=== PATIENT | female | born 1970 | race Caucasian/White ===

== ENCOUNTER 2018-04-06 13:19 | Emergency (ER) | payer MEDICAID ==
[~2018-04-06] VITALS: Ht 167.6 cm; Wt 77.3 kg
[~2018-04-06 13:19] MED LIST: ARIP10TA15 PO; BACL10TA PO; GABA600T2 PO; HYDR-4383 PO; INSU100V36 SQ; VENL75TA90 PO
[2018-04-06 14:53] VITALS: BP 153/117
[2018-04-06 15:09] LABS: BASOPHILS % (AUTO) 0.5 % (0-1); EOSINOPHILS # (AUTO) 0.2 X10'3 (0-0.9); EOSINOPHILS % (AUTO) 2.5 % (0-6); HEMATOCRIT 39.6 % (35.0-45.0); LYMPHOCYTES # (AUTO) 2.9 X10'3 (1.1-4.8); LYMPHOCYTES % (AUTO) 34.2 % (21-51); MEAN CORPUSCULAR HEMOGLOBIN 28.8 PG (27.0-31.0); MEAN CORPUSCULAR HGB CONC 32.9 % (33.0-36.5); MEAN CORPUSCULAR VOLUME 87.8 FL (78-98); MEAN PLATELET VOLUME 9.3 FL (7.4-10.4); MONOCYTES # (AUTO) 0.5 X10'3 (0-0.9); MONOCYTES % (AUTO) 5.7 % (2-12); NEUTROPHILS # (AUTO) 4.9 X10'3 (1.8-7.7); NEUTROPHILS % (AUTO) 57.1 % (42-75); PLATELET COUNT 363 X10'3 (140-440); RED BLOOD COUNT 4.51 X10'6 (4.20-5.60); RED CELL DISTRIBUTION WIDTH 14.6 % (11.5-14.5); WHITE BLOOD COUNT 8.5 X10'3 (4.5-11.0)
[2018-04-06] MEDS ORDERED: MUPI22OI30 TP (15:26)
[2018-04-06] MEDS ORDERED: CLIN150C2 PO (15:26)
[2018-04-06 15:36] LABS: ALANINE AMINOTRANSFERASE 28 U/L (12-78); ALBUMIN 2.8 G/DL (3.4-5.0); ALBUMIN/GLOBULIN RATIO 0.6 (1.1-1.5); ALKALINE PHOSPHATASE 197 IU/L (46-116); ANION GAP 8 (8-16); ASPARTATE AMINO TRANSFERASE 17 U/L (10-37); BILIRUBIN,TOTAL 0.1 MG/DL (0.1-1.0); BLOOD UREA NITROGEN 8 MG/DL (7-18); BUN/CREATININE RATIO 10.3 (6.6-38.0); CALCIUM 8.7 MG/DL (8.5-10.1); CHLORIDE 99 MMOL/L (99-107); CREATININE 0.78 MG/DL (0.40-0.90); GLUCOSE 364 MG/DL (70-104); POTASSIUM 4.4 MMOL/L (3.5-5.1); SODIUM 136 MMOL/L (135-145); TOTAL CARBON DIOXIDE 29.5 MMOL/L (24-32); TOTAL PROTEIN 7.2 G/DL (6.4-8.2); eGFR 78 ML/MIN
== END 2018-04-06 15:50 | disposition home or self-care (01) ==
LOC: ER 13:20
DX: L01.00 Impetigo, unspecified (principal); B95.8 Unspecified staphylococcus as the cause of diseases classified elsewhere; I10 Essential (primary) hypertension; E11.9 Type 2 diabetes mellitus without complications; F41.9 Anxiety disorder, unspecified; Z90.49 Acquired absence of other specified parts of digestive tract; Z90.710 Acquired absence of both cervix and uterus; Z98.51 Tubal ligation status; Z79.899 Other long term (current) drug therapy; Z88.5 Allergy status to narcotic agent; Z88.6 Allergy status to analgesic agent
CPT/HCPCS: 36415; 80053; 82948; 85025; 99283

== ENCOUNTER 2018-05-01 13:23 | Inpatient (IN) | payer MEDICAID | END 2018-05-04 17:05 | disposition home or self-care (01) | LOC: ER 13:23 → ED HOLD 17:40 → SUR 3N 19:38 ==

== ENCOUNTER → 2018-06-19 | Emergency (ER) | payer MEDICAID ==
[~2018-06-19] VITALS: Ht 167.6 cm; Wt 71.0 kg
[~2018-06-19] MED LIST changes: +ALBU18HF2 IH; -BACL10TA PO; +FLUT1AER6 INH; +GABA100C PO; -GABA600T2 PO; +LACT1CAP26 PO; +NICO-687 TD
[2018-06-19 15:07] VITALS: BP 196/101
--- NOTE | 2018-06-19 15:18 | NUR ---
FELL THRU A DECK A WEEK AND 1/2 AGO HURTING LEFT ELBOW RADIATING DOWN TO HAND AND UP TO SHOULDER.
--- NOTE | 2018-06-19 15:23 | NUR ---
BACK FROM XRAY
== END | disposition home or self-care (01) ==
LOC: ER 15:04
DX: M25.522 Pain in left elbow (principal); R20.0 Anesthesia of skin; R20.2 Paresthesia of skin; M25.422 Effusion, left elbow; G89.29 Other chronic pain; Z88.6 Allergy status to analgesic agent; Z79.899 Other long term (current) drug therapy; Z79.4 Long term (current) use of insulin; I10 Essential (primary) hypertension; Z90.49 Acquired absence of other specified parts of digestive tract; Z90.710 Acquired absence of both cervix and uterus; E11.40 Type 2 diabetes mellitus with diabetic neuropathy, unspecified; Z98.51 Tubal ligation status; W18.39XA Other fall on same level, initial encounter; Y93.89 Activity, other specified; Y92.89 Other specified places as the place of occurrence of the external cause; Y99.8 Other external cause status
CPT/HCPCS: 73080; 99283

== ENCOUNTER 2018-07-01 12:20 | Emergency (ER) | payer MEDICAID ==
[~2018-07-01] VITALS: Ht 167.6 cm; Wt 75.0 kg
[2018-07-01 12:27] VITALS: BP 170/100
== END 2018-07-01 13:57 | disposition home or self-care (01) ==
LOC: ER 12:20
DX: S59.902D Unspecified injury of left elbow, subsequent encounter (principal); I10 Essential (primary) hypertension; E11.9 Type 2 diabetes mellitus without complications; G89.29 Other chronic pain; M54.9 Dorsalgia, unspecified; Z90.49 Acquired absence of other specified parts of digestive tract; Z90.710 Acquired absence of both cervix and uterus; Z98.51 Tubal ligation status; F17.200 Nicotine dependence, unspecified, uncomplicated; Z88.6 Allergy status to analgesic agent; Z88.8 Allergy status to other drugs, medicaments and biological substances; Z79.4 Long term (current) use of insulin; X58.XXXD Exposure to other specified factors, subsequent encounter
CPT/HCPCS: 29105; 73080; 99283

== ENCOUNTER 2019-09-22 22:34 | Inpatient (IN) | payer MEDICAID ==
[~2019-09-22] VITALS: Ht 167.6 cm; Wt 80.0 kg
[2019-09-22] MEDS ORDERED: ondansetron 4mg rapidly disintigrating tab PO ONE (23:00)
[2019-09-22] MEDS ORDERED: normal saline 1000ML IV soln IVB ONE (23:30)
[2019-09-22] MEDS ORDERED: normal saline 1000ml 1,000 ML IV ONE (23:30)
[2019-09-22] MEDS ORDERED: ondansetron/PF 4mg/2ml inj IV ONE ×2 (23:30→23:55)
[2019-09-22] MEDS ORDERED: pantoprazole 40 MG vial IV ONE (23:30)
[2019-09-22 23:57] LABS: ABG BASE EXCESS -14.5 mmol/L (-2.0-3.0); ABG HCO3 11.3 mmol/L (22.0-26.0); ABG OXYGEN SATURATION 95.3 % (95-98); ABG PCO2 (T) 26.6 mmHg (35.0-45.0); ABG PO2 (T) 90.2 mmHg (83-108); FMetHb 0.2 % (0.3-1.12); FO2Hb 94.2 % (94-100); PATIENT TEMPERATURE 36.7; TOTAL HEMOGLOBIN 12.3 G/dl (12.0-16.0)
[2019-09-23] MEDS ORDERED: ondansetron/PF 4mg/2ml inj IV ONE
[2019-09-23 00:32] LABS: BASOPHILS # (AUTO) 0.1 X10'3 (0-0.2); BASOPHILS % (AUTO) 0.7 % (0-1); EOSINOPHILS % (AUTO) 0 % (0-6); HEMATOCRIT 37.7 % (35.0-45.0); HEMOGLOBIN 11.9 g/dl (12.0-16.0); LYMPHOCYTES # (AUTO) 1.8 X10'3 (1.1-4.8); LYMPHOCYTES % (AUTO) 11.1 % (21-51); MEAN CORPUSCULAR HEMOGLOBIN 28.6 PG (27.0-31.0); MEAN CORPUSCULAR HGB CONC 31.4 g/dL (33.0-36.5); MEAN CORPUSCULAR VOLUME 90.9 FL (78-98); MEAN PLATELET VOLUME 10.5 FL (7.4-10.4); MONOCYTES # (AUTO) 0.6 X10'3 (0-0.9); MONOCYTES % (AUTO) 3.7 % (2-12); NEUTROPHILS # (AUTO) 13.9 X10'3 (1.8-7.7); NEUTROPHILS % (AUTO) 84.5 % (42-75); PLATELET COUNT 296 X10'3 (140-440); RED BLOOD COUNT 4.15 X10'6 (4.20-5.60); RED CELL DISTRIBUTION WIDTH 14.3 % (11.5-14.5); WHITE BLOOD COUNT 16.5 X10'3 (4.5-11.0)
[2019-09-23 00:41] LABS: ALANINE AMINOTRANSFERASE 13 U/L (12-78); ALBUMIN 2.8 G/DL (3.4-5.0); ALBUMIN/GLOBULIN RATIO 0.7 (1.1-1.5); ALKALINE PHOSPHATASE 161 IU/L (46-116); ANION GAP 24 (8-16); ASPARTATE AMINO TRANSFERASE 17 U/L (10-37); BILIRUBIN,TOTAL 0.6 MG/DL (0.1-1.0); BLOOD UREA NITROGEN 47 MG/DL (7-18); BUN/CREATININE RATIO 24.1 (6.6-38.0); CALCIUM 8.3 MG/DL (8.5-10.1); CHLORIDE 93 MMOL/L (99-107); CREATININE 1.95 MG/DL (0.40-0.90); LIPASE < 50 U/L (73-393); POTASSIUM 5.3 MMOL/L (3.5-5.1); SODIUM 128 MMOL/L (135-145); eGFR 27 ML/MIN
[2019-09-23 00:54] LABS: GLUCOSE 848 MG/DL (70-104)
[2019-09-23 00:55] LABS: TOTAL CARBON DIOXIDE 10.9 MMOL/L (24-32)
[2019-09-23] MEDS ORDERED: Insulin Reg/NS 100units/100mL 100 ML IV PRN (00:58)
[2019-09-23] MEDS ORDERED: potassium Cl 20 mEq SR tablet PO PRN ×4 (01:15)
[2019-09-23] MEDS ORDERED: sodium bicarbonate (8.4%) inj. 50 MEQ in dextrose 5% water 500ml 250 ML IV PRN (01:15)
[2019-09-23] MEDS ORDERED: insulin regular, human U-100 3ml vial - multi-dose IV PRN (01:15)
[2019-09-23] MEDS ORDERED: magnesium 2GM in 50ml NS 50 ML IV PRN (01:15)
[2019-09-23] MEDS ORDERED: acetaminophen 325mg tablet PO PRN ×2 (01:15→16:40)
[2019-09-23] MEDS ORDERED: magnesium hydroxide 30ml (MOM) UD suspension PO PRN (01:15)
[2019-09-23] MEDS ORDERED: sodium phosphate inj. 15 MMOL in dextrose 5%-water 250 ML IV PRN (01:15)
[2019-09-23] MEDS ORDERED: mag hydrox/Alum hydrox/simeth 30ml oral suspension PO PRN (01:15)
[2019-09-23] MEDS ORDERED: sodium bicarbonate (8.4%) inj. 100 MEQ in dextrose 5% water 500ml 500 ML IV PRN (01:15)
[2019-09-23] MEDS ORDERED: potassium CL 20mEq in D5-1/2NS 1,000 ML IV PRN ×2 (01:15→07:56)
[2019-09-23] MEDS: Insulin Reg/NS 100units/100mL 100 ML IV SCH ×3 (01:15→12:12)
[2019-09-23] MEDS ORDERED: magnesium Cl slow-release 64mg tablet PO PRN (01:15)
[2019-09-23] MEDS ORDERED: sodium phosphate inj. 30 MMOL in dextrose 5%-water 250 ML IV PRN (01:15)
[2019-09-23] MEDS ORDERED: potassium CL 10mEq/100ml bag 100 ML IV PRN ×4 (01:15)
[2019-09-23] MEDS ORDERED: magnesium 4gm in 100ml NS 100 ML IV PRN (01:15)
[2019-09-23] MEDS ORDERED: Neutra Phos packet PO PRN (01:15)
[2019-09-23] MEDS ORDERED: ondansetron/PF 4mg/2ml inj IV PRN (01:15)
[2019-09-23] MEDS: normal saline 1000ml 1,000 ML IV SCH ×8 (01:40→21:15)
--- NOTE | 2019-09-23 01:50 | NUR ---
Spoke with MD Serrano about conflicting orders for insulin drip of 7 ml/hr vs 5 ml/hr per protocol. MD Serrano requested drip be reduced to protocol level of 5 ml/hr
--- NOTE | 2019-09-23 02:43 | NUR ---
Patient in room ED 16. I have received report from Demarco, RN and had the opportunity to ask questions and assume patient care.
[2019-09-23 03:11] VITALS: BP 155/67
[2019-09-23 03:15] LABS: PLATELET ESTIMATE NORMAL
[2019-09-23 03:16] LABS: LARGE PLATELETS FEW
[2019-09-23 05:53] LABS: ALBUMIN 2.8 G/DL (3.4-5.0); ANION GAP 21 (8-16); BLOOD UREA NITROGEN 47 MG/DL (7-18); BUN/CREATININE RATIO 26.3 (6.6-38.0); CALCIUM 8.2 MG/DL (8.5-10.1); CHLORIDE 99 MMOL/L (99-107); CREATININE 1.79 MG/DL (0.40-0.90); GLUCOSE 448 MG/DL (70-104); MAGNESIUM 2.2 MG/DL (1.5-2.4); POTASSIUM 3.9 MMOL/L (3.5-5.1); SODIUM 135 MMOL/L (135-145); eGFR 30 ML/MIN
--- NOTE | 2019-09-23 05:53 | NUR ---
I have read and agree with all documentation completed by SAURAV Joy.
[2019-09-23 05:56] LABS: TOTAL CARBON DIOXIDE 14.8 MMOL/L (24-32)
--- NOTE | 2019-09-23 05:58 | NUR ---
Dr Serrano PAGER ID: [phone] MESSAGE: [phone] Nancy Ramirez Critical lab CO2 14.8 is improving from initial FYI Thanks! Benita
--- NOTE | 2019-09-23 06:11 | NUR ---
Problems reprioritized. Patient report given, questions answered & plan of care reviewed with SAURAV Muniz.
--- NOTE | 2019-09-23 06:11 | NUR ---
Problems reprioritized. Patient report given, questions answered & plan of care reviewed with Cristy MG.
--- NOTE | 2019-09-23 06:17 | NUR ---
Problems reprioritized. Patient report given, questions answered & plan of care reviewed with SAURAV Sanchez.
--- NOTE | 2019-09-23 06:25 | NUR ---
Patient in room PCU 3021W. I have received report from Leah MG and had the opportunity to ask questions and assume patient care.
[2019-09-23] MEDS: potassium Cl 20mEq in NS 1,000 ML IV SCH ×3 (06:29→14:29)
[2019-09-23 06:30] VITALS: BP 129/55
--- NOTE | 2019-09-23 07:26 | NUR ---
Federico SHAVER PAGER ID: [phone] MESSAGE: Cristy lovett [phone]. RE Nancy Ramirez. 3026B. DKA protocol pt blood sugar was 407 at 0600 and 272 @ 0700. Inuslin rate currently @ 10 units, would you like new order to decrease insulin to 5 units? Addendum: 09/23/19 at 0747 by Cristy Rojas RN Received orders from Najma to decrease insulin gtt 5 units/hr
[2019-09-23] MEDS ORDERED: K and/or MAG REPLACEMENT MC SCH (08:00)
[2019-09-23] MEDS: K and/or MAG REPLACEMENT MC SCH ×2 (08:00→20:00)
[2019-09-23] MEDS: enoxaparin 40mg/0.4ml syringe SQ SCH (08:30)
--- NOTE | 2019-09-23 08:55 | NUR ---
Federico SHAVER PAGER ID: [phone] MESSAGE: Cristy lovett [phone]. RE Steve Ramirez 3026B. Lab unsuccessful multiple attempts to draw blood. May we draw blood from 20g EJ?
[2019-09-23] MEDS ORDERED: pneumococcal 23-VAL P-sac vacc 25 mcg/0.5ml vial IMVAC ONE (10:00)
[2019-09-23 10:53] LABS: HEMOGLOBIN A1C 11.3 % (4.5-6.2)
[2019-09-23 10:56] LABS: ALBUMIN 2.6 G/DL (3.4-5.0); ANION GAP 6 (8-16); BLOOD UREA NITROGEN 39 MG/DL (7-18); BUN/CREATININE RATIO 27.3 (6.6-38.0); CALCIUM 7.6 MG/DL (8.5-10.1); CHLORIDE 107 MMOL/L (99-107); CREATININE 1.43 MG/DL (0.40-0.90); GLUCOSE 188 MG/DL (70-104); PHOSPHORUS 2.4 MG/DL (2.3-4.5); SODIUM 138 MMOL/L (135-145); TOTAL CARBON DIOXIDE 24.8 MMOL/L (24-32); eGFR 39 ML/MIN
[2019-09-23 10:59] LABS: POTASSIUM 4.1 MMOL/L (3.5-5.1)
[2019-09-23 11:00] VITALS: BP 123/59
--- NOTE | 2019-09-23 11:44 | NUR ---
Federico SHAVER PAGER ID: [phone] MESSAGE: Cristy lovett [phone]. RE Steve Ramirez 3026B. Anion gap down to 6, CO2 24.8, Phos 2.4. Would you like additional 1700 BMP; also would like to try eating, can I order Carb Control diet? Addendum: 09/23/19 at 1202 by Cristy Rojas RN Received orders from Dr Yao to place carb control diet and continue with 1700 ordered BMP per protocol
[2019-09-23] MEDS ORDERED: dextrose 50%-water 50ml dispensing syringe IV PRN ×2 (11:50)
[2019-09-23] MEDS ORDERED: dextrose ORAL solution 15 GM/59 ML bottle PO PRN ×2 (11:50)
[2019-09-23] MEDS ORDERED: MESSAGE TO PHARMACY PO ONE (11:50)
[2019-09-23] MEDS ORDERED: glucagon, human recombinant 1mg kit SUBCUT PRN (11:50)
--- NOTE | 2019-09-23 13:06 | NUR ---
Initial: Pt admit w/ DKA hx T1DM A1C 11.3; has insulin pump using humalog per EMR. NPO at this time receiving insulin and electrolytes w/ GLU down to 165 from 848 on admit. 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 LBM 6. Will monitor for PO diet advancement and tolerance. Rec: 1. advance diet as medically indicated to carb controlled/heart healthy 2. monitor for ONS needs once PO 3. routine bowel care 4. DM ed once stable prior to discharge 5. wt per rx Addendum: 09/23/19 at [address] Amended: Links added.
[2019-09-23] MEDS: insulin Lispro (HumaLOG) vial - multi-dose SQ SCH ×2 (13:27→18:42)
[2019-09-23 15:00] VITALS: BP 112/57
--- NOTE | 2019-09-23 15:19 | NUR ---
1 unit SQ humalog given to patient at 1330 to cover 24 grams of carbs that she ate. Insulin and fluids stopped at 1430. 1500 accucheck 124. Will continue to monitor blood sugars frequently s/p gtt discontinued
[2019-09-23 15:37] LABS: ALBUMIN 2.5 G/DL (3.4-5.0); ANION GAP 7 (8-16); BLOOD UREA NITROGEN 35 MG/DL (7-18); BUN/CREATININE RATIO 30.2 (6.6-38.0); CALCIUM 7.5 MG/DL (8.5-10.1); CHLORIDE 107 MMOL/L (99-107); CREATININE 1.16 MG/DL (0.40-0.90); GLUCOSE 143 MG/DL (70-104); PHOSPHORUS 2.4 MG/DL (2.3-4.5); POTASSIUM 4.3 MMOL/L (3.5-5.1); SODIUM 137 MMOL/L (135-145); TOTAL CARBON DIOXIDE 23.4 MMOL/L (24-32); eGFR 49 ML/MIN
[2019-09-23] MEDS ORDERED: OMEP-50 PO (15:55)
--- NOTE | 2019-09-23 16:37 | NUR ---
Paged PAGER ID: [phone] MESSAGE: Cristy lovett [phone]. RE Steve Ramirez [phone]. Can I have an order for pain medication, patient has complaints of a headache. Thank you!
--- NOTE | 2019-09-23 18:18 | NUR ---
Problems reprioritized. Patient report given, questions answered & plan of care reviewed with Carolina MG.
--- NOTE | 2019-09-23 18:31 | NUR ---
Patient in room U 3026L. I have received report from SAURAV LUCERO and had the opportunity to ask questions and assume patient care.
[2019-09-23 19:00] VITALS: BP 107/56
[2019-09-23] MEDS ORDERED: insulin glargine (Lantus) pen - multi-dose SQ SCH (21:00)
[2019-09-23 23:00] VITALS: BP 130/53
[2019-09-24] MEDS: normal saline 1000ml 1,000 ML IV SCH ×3 (01:15→09:15)
[2019-09-24] MEDS ORDERED: HYDROcodone/acetaminophen 5mg/325mg tablet PO PRN (01:35)
[2019-09-24 02:40] LABS: BASOPHILS # (AUTO) 0.1 X10'3 (0-0.2); BASOPHILS % (AUTO) 0.5 % (0-1); EOSINOPHILS # (AUTO) 0.1 X10'3 (0-0.9); EOSINOPHILS % (AUTO) 0.4 % (0-6); HEMATOCRIT 31.5 % (35.0-45.0); HEMOGLOBIN 10.4 g/dl (12.0-16.0); LYMPHOCYTES # (AUTO) 4.3 X10'3 (1.1-4.8); LYMPHOCYTES % (AUTO) 24.9 % (21-51); MEAN CORPUSCULAR HEMOGLOBIN 28.9 PG (27.0-31.0); MEAN CORPUSCULAR HGB CONC 32.9 g/dL (33.0-36.5); MEAN CORPUSCULAR VOLUME 87.6 FL (78-98); MEAN PLATELET VOLUME 9.6 FL (7.4-10.4); MONOCYTES # (AUTO) 1.1 X10'3 (0-0.9); MONOCYTES % (AUTO) 6.3 % (2-12); NEUTROPHILS # (AUTO) 11.9 X10'3 (1.8-7.7); NEUTROPHILS % (AUTO) 67.9 % (42-75); PLATELET COUNT 249 X10'3 (140-440); RED BLOOD COUNT 3.59 X10'6 (4.20-5.60); RED CELL DISTRIBUTION WIDTH 14.4 % (11.5-14.5); WHITE BLOOD COUNT 17.5 X10'3 (4.5-11.0)
[2019-09-24 02:47] LABS: ALANINE AMINOTRANSFERASE 15 U/L (12-78); ALBUMIN 2.3 G/DL (3.4-5.0); ALBUMIN/GLOBULIN RATIO 0.8 (1.1-1.5); ALKALINE PHOSPHATASE 108 IU/L (46-116); ANION GAP 10 (8-16); ASPARTATE AMINO TRANSFERASE 26 U/L (10-37); BILIRUBIN,TOTAL 0.4 MG/DL (0.1-1.0); BLOOD UREA NITROGEN 27 MG/DL (7-18); CALCIUM 7.7 MG/DL (8.5-10.1); CHLORIDE 103 MMOL/L (99-107); CREATININE 1.23 MG/DL (0.40-0.90); GLUCOSE 271 MG/DL (70-104); PHOSPHORUS 2.6 MG/DL (2.3-4.5); POTASSIUM 4.2 MMOL/L (3.5-5.1); SODIUM 136 MMOL/L (135-145); TOTAL PROTEIN 5.3 G/DL (6.4-8.2); eGFR 46 ML/MIN
[2019-09-24 03:00] VITALS: BP 106/64
[2019-09-24] MEDS: insulin Lispro (HumaLOG) vial - multi-dose SQ SCH ×2 (03:01→05:16)
--- NOTE | 2019-09-24 04:53 | NUR ---
BLOOD SUGAR 269 FOR [address] MARRUFO AND WILL CONTINUE TO FOLLOW HYPER/HYPOGLYCEMIC PROTOCOL. PATIENT ASKED IF SHE WOULD BE ABLE TO USE SQ INSULIN PUMP- THAT WOULD NEED TO BE ADDRESSED WITH DAY SHIFT HOSPITALIST.
--- NOTE | 2019-09-24 06:14 | NUR ---
Problems reprioritized. Patient report given, questions answered & plan of care reviewed with SAURAV LUCERO.
[2019-09-24 06:30] VITALS: BP 114/48
--- NOTE | 2019-09-24 06:34 | NUR ---
Patient in room PCU 3020J. I have received report from Carolina MG and had the opportunity to ask questions and assume patient care.
[2019-09-24] MEDS: enoxaparin 40mg/0.4ml syringe SQ SCH (07:44)
[2019-09-24] MEDS: K and/or MAG REPLACEMENT MC SCH (07:45)
--- NOTE | 2019-09-24 09:35 | NUR ---
Spoke to Dr Yao regarding patient's insulin coverage. Patient does have insulin pump, and said that allow patient to reactivate pump and use that for insulin coverage as opposed to our protocol coverage. Blood sugars are still to be checked ACHS
[2019-09-24] MEDS ORDERED: pneumococcal 23-VAL P-sac vacc 25 mcg/0.5ml vial IMVAC ONE (10:00)
--- NOTE | 2019-09-24 11:30 | NUR ---
F/u (09/23): Pt seen by RD for written/verbal DM ed w/ RD contact information provided. Pt reports previously receiving 2 bottles of insulin per month but recently changed to 1 per month and unsure if insurance coverage issue or r/t change in Marco's ownership. Pt reports prior A1C around 11 and is aware of clinical significance; also has not had any diet ed thus far w/ [address] provided thorough DM ed and encouraged pt to contact dietitian's office via phone/email if any further questions/concerns. Pt became distraught over T1DM management difficulties; RD left message w/ CM regarding pt medication issues. Addendum: 09/24/19 at [address] Amended: Links added.
--- NOTE | 2019-09-24 12:15 | NUR ---
Federico SHAVER PAGER ID: [phone] MESSAGE: Cristy lovett [phone]. RE. Steve Ramirez 3027P. PT's 1200 blood sugar was 330. Pt still states she wants to discharge and said she needs to leave at 1300 for her ride.
--- NOTE | 2019-09-24 12:57 | NUR ---
Per MD, patient stable for discharge home. Discharge packet completed and given to patient, all questions answered. Patient provided with Diabetic Survival Skills packet and Patient given instructions to followup with [facility]. IV's removed with catheter intact and tele monitor returned to telecom field technician.. All belongings sent with patient. Patient also received counseling resources from social staff worker. All belongings sent with patient. Patient escorted from hospital accompanied by nursing specialist and driven home via private vehicle.
== END 2019-09-24 12:58 | disposition home or self-care (01) | DRG 420 ==
LOC: ER 22:34 → ED HOLD 09-23 01:21 → PCU 3S 09-23 02:50
PROVIDERS: ADMIT Family Medicine; ATTEND Family Medicine
PROC: 3E0234Z Introduction of Serum, Toxoid and Vaccine into Muscle, Percutaneous Approach (ICD-10-PCS; principal; 2019-09-24)
DX: E10.10 Type 1 diabetes mellitus with ketoacidosis without coma (principal); N17.9 Acute kidney failure, unspecified; E78.00 Pure hypercholesterolemia, unspecified; E78.5 Hyperlipidemia, unspecified; Z96.41 Presence of insulin pump (external) (internal); F41.9 Anxiety disorder, unspecified; G89.29 Other chronic pain; M54.9 Dorsalgia, unspecified; F17.210 Nicotine dependence, cigarettes, uncomplicated; I10 Essential (primary) hypertension; Z79.4 Long term (current) use of insulin; Z90.710 Acquired absence of both cervix and uterus; Z23 Encounter for immunization; Z88.5 Allergy status to narcotic agent; Z90.49 Acquired absence of other specified parts of digestive tract; Z98.51 Tubal ligation status
CPT/HCPCS: 36415; 36600; 76937; 80048; 80053; 82009; 82803; 82948; 83036; 83690; 83735; 84100; 85018; 85025; 87081; 96361; 96374; 99285; C9113; G0378; J1650; J1815; J2405; J3480; J7030

== ENCOUNTER 2020-05-30 15:58 | Emergency (ER) | payer MEDICAID ==
[~2020-05-30] VITALS: Ht 167.6 cm; Wt 77.0 kg
[~2020-05-30 15:58] MED LIST changes: -ALBU18HF2 IH; -ARIP10TA15 PO; -FLUT1AER6 INH; -GABA100C PO; -HYDR-4383 PO; -LACT1CAP26 PO; -NICO-687 TD; +OMEP-50 PO; -VENL75TA90 PO
[2020-05-30 16:11] VITALS: BP 176/84
== END 2020-05-30 17:27 | disposition home or self-care (01) ==
LOC: ER 15:59
DX: S90.122A Contusion of left lesser toe(s) without damage to nail, initial encounter (principal); M79.672 Pain in left foot; E78.00 Pure hypercholesterolemia, unspecified; I10 Essential (primary) hypertension; E11.9 Type 2 diabetes mellitus without complications; G89.29 Other chronic pain; Z90.49 Acquired absence of other specified parts of digestive tract; Z90.710 Acquired absence of both cervix and uterus; Z98.51 Tubal ligation status; Z88.8 Allergy status to other drugs, medicaments and biological substances; Z79.4 Long term (current) use of insulin; Z79.899 Other long term (current) drug therapy; W20.8XXA Other cause of strike by thrown, projected or falling object, initial encounter; Y93.89 Activity, other specified; Y92.89 Other specified places as the place of occurrence of the external cause; Y99.8 Other external cause status
CPT/HCPCS: 73630; 99283

== ENCOUNTER 2021-11-03 20:01 | Emergency (ER) | payer MEDICAID ==
[~2021-11-03] VITALS: Ht 167.6 cm; Wt 75.0 kg
[~2021-11-03 20:01] MED LIST changes: -OMEP-50 PO; +OMEP20CA16 PO
[2021-11-03 20:13] VITALS: BP 174/72
[2021-11-03] MEDS ORDERED: TRIA15CR61 TOP (20:59)
[2021-11-03 21:42] LABS: BASOPHILS # (AUTO) 0.1 X10'3 (0-0.2); BASOPHILS % (AUTO) 0.8 % (0-1); EOSINOPHILS # (AUTO) 0.1 X10'3 (0-0.9); EOSINOPHILS % (AUTO) 0.7 % (0-6); HEMATOCRIT 39.8 % (35.0-45.0); LYMPHOCYTES # (AUTO) 1.6 X10'3 (1.1-4.8); LYMPHOCYTES % (AUTO) 18.7 % (21-51); MEAN CORPUSCULAR HEMOGLOBIN 28.3 PG (27.0-31.0); MEAN CORPUSCULAR HGB CONC 32.6 g/dL (33.0-36.5); MEAN CORPUSCULAR VOLUME 86.8 FL (78-98); MEAN PLATELET VOLUME 9.8 FL (7.4-10.4); MONOCYTES # (AUTO) 0.5 X10'3 (0-0.9); MONOCYTES % (AUTO) 6.1 % (2-12); NEUTROPHILS # (AUTO) 6.2 X10'3 (1.8-7.7); NEUTROPHILS % (AUTO) 73.7 % (42-75); PLATELET COUNT 297 X10'3 (140-440); RED BLOOD COUNT 4.58 X10'6 (4.20-5.60); RED CELL DISTRIBUTION WIDTH 15.3 % (11.5-14.5); WHITE BLOOD COUNT 8.3 X10'3 (4.5-11.0)
[2021-11-03 21:57] LABS: ALANINE AMINOTRANSFERASE 15 U/L (12-78); ALBUMIN/GLOBULIN RATIO 0.6 (1.1-1.5); ALKALINE PHOSPHATASE 128 IU/L (46-116); ANION GAP 10 (8-16); ASPARTATE AMINO TRANSFERASE 15 U/L (10-37); BILIRUBIN,TOTAL 0.2 MG/DL (0.1-1.0); BLOOD UREA NITROGEN 11 MG/DL (7-18); BUN/CREATININE RATIO 15.3 (6.6-38.0); CALCIUM 8.5 MG/DL (8.5-10.1); CHLORIDE 107 MMOL/L (99-107); CREATININE 0.72 MG/DL (0.40-0.90); GLUCOSE 262 MG/DL (70-104); POTASSIUM 3.7 MMOL/L (3.5-5.1); SODIUM 143 MMOL/L (135-145); TOTAL CARBON DIOXIDE 25.9 MMOL/L (24-32); TOTAL PROTEIN 7.7 G/DL (6.4-8.2); eGFR 85 ML/MIN
[2021-11-03 22:03] LABS: HEMOGLOBIN A1C 11.1 % (4.5-6.2)
== END 2021-11-03 21:15 | disposition home or self-care (01) ==
LOC: ER 20:02
DX: T85.694A Other mechanical complication of insulin pump, initial encounter (principal); E11.649 Type 2 diabetes mellitus with hypoglycemia without coma; E78.00 Pure hypercholesterolemia, unspecified; I10 Essential (primary) hypertension; G89.29 Other chronic pain; F41.9 Anxiety disorder, unspecified; Z90.49 Acquired absence of other specified parts of digestive tract; Z98.51 Tubal ligation status; Z90.710 Acquired absence of both cervix and uterus; Z88.5 Allergy status to narcotic agent; Z88.6 Allergy status to analgesic agent; Z79.4 Long term (current) use of insulin; Z79.899 Other long term (current) drug therapy; Y84.9 Medical procedure, unspecified as the cause of abnormal reaction of the patient, or of later complication, without mention of misadventure at the time of the procedure; Y92.89 Other specified places as the place of occurrence of the external cause
CPT/HCPCS: 36415; 80053; 82948; 83036; 85025; 99283

== ENCOUNTER 2022-01-07 19:03 | Emergency (ER) | payer MEDICAID ==
[~2022-01-07] VITALS: Ht 167.6 cm; Wt 75.0 kg
[2022-01-07 19:08] VITALS: BP 189/119
[2022-01-09] MEDS ORDERED: PRED20TA PO (20:06)
== END 2022-01-08 02:14 | disposition left against medical advice (07) ==
LOC: ER 19:04
DX: R21 Rash and other nonspecific skin eruption (principal); Z53.21 Procedure and treatment not carried out due to patient leaving prior to being seen by health care provider

== ENCOUNTER 2022-01-09 18:28 | Emergency (ER) | payer MEDICAID ==
[~2022-01-09] VITALS: Ht 167.6 cm; Wt 75.0 kg
[2022-01-09 18:43] VITALS: BP 194/92
[2022-01-09] MEDS ORDERED: dexamethasone sod phosphate 10mg/ml inj IM STA (19:47)
[2022-01-09] MEDS ORDERED: diphenhydrAMINE 25mg capsule PO ONE (19:50)
[2022-01-09] MEDS ORDERED: PRED20TA PO (20:06)
== END 2022-01-09 20:27 | disposition home or self-care (01) ==
LOC: ER 18:29
DX: L25.5 Unspecified contact dermatitis due to plants, except food (principal); E78.00 Pure hypercholesterolemia, unspecified; I10 Essential (primary) hypertension; E11.9 Type 2 diabetes mellitus without complications; G89.29 Other chronic pain; F41.9 Anxiety disorder, unspecified; Z90.49 Acquired absence of other specified parts of digestive tract; Z90.710 Acquired absence of both cervix and uterus; Z98.51 Tubal ligation status; Z88.8 Allergy status to other drugs, medicaments and biological substances; Z79.4 Long term (current) use of insulin; Z79.899 Other long term (current) drug therapy
CPT/HCPCS: 96372; 99283; J1100; Q0163

== ENCOUNTER 2022-06-17 11:44 | Emergency (ER) | payer MEDICAID ==
[~2022-06-17] VITALS: Ht 160 cm; Wt 77.3 kg
[2022-06-17 11:52] VITALS: BP 130/59
[2022-06-17] MEDS ORDERED: AMOX-117 PO (13:55)
[2022-06-17] MEDS ORDERED: PRED20TA PO (13:55)
== END 2022-06-17 14:23 | disposition home or self-care (01) ==
LOC: ER 11:45
DX: J02.9 Acute pharyngitis, unspecified (principal); E78.00 Pure hypercholesterolemia, unspecified; I10 Essential (primary) hypertension; E11.9 Type 2 diabetes mellitus without complications; G89.29 Other chronic pain; M54.9 Dorsalgia, unspecified; F41.9 Anxiety disorder, unspecified; Z90.49 Acquired absence of other specified parts of digestive tract; Z88.5 Allergy status to narcotic agent; Z79.899 Other long term (current) drug therapy; Z79.84 Long term (current) use of oral hypoglycemic drugs
CPT/HCPCS: 71046; 99283

== ENCOUNTER 2022-09-11 12:07 | Emergency (ER) | payer MEDICAID ==
[~2022-09-11] VITALS: Ht 167.6 cm; Wt 77.0 kg
[2022-09-11 12:12] VITALS: BP 181/85
[2022-09-11] MEDS ORDERED: IBUP-1986 PO ×3 (13:11→13:13)
[2022-09-11] MEDS ORDERED: LIDO-15 TOP ×3 (13:11→13:13)
== END 2022-09-11 13:26 | disposition home or self-care (01) ==
LOC: ER 12:08
DX: R07.81 Pleurodynia (principal); E78.00 Pure hypercholesterolemia, unspecified; I10 Essential (primary) hypertension; E11.9 Type 2 diabetes mellitus without complications; Z88.5 Allergy status to narcotic agent; Z79.899 Other long term (current) drug therapy; Z79.1 Long term (current) use of non-steroidal anti-inflammatories (NSAID); Z79.2 Long term (current) use of antibiotics
CPT/HCPCS: 99282; 99283

== ENCOUNTER 2024-12-22 08:52 | Inpatient (IN) | payer MEDICAID ==
[~2024-12-22] VITALS: Ht 167.6 cm; Wt 81.6 kg
[2024-12-22] VITALS (13 sets, daily range): BP systolic 103–141; BP diastolic 31–69; PULSE 80–102; RESP 9–19; TEMP 97.8; O2SAT 92–100
[~2024-12-22 08:52] MED LIST changes: +IBUP-1986 PO; +LIDO-15 TOP
[2024-12-22] MEDS ORDERED: NPH, human insulin isophane inj. SQ SCH (10:00)
--- NOTE | 2024-12-22 10:05 | Physician Documentation ---
History of Present Illness ~ Chief Complaint: Diabetic Complication Stated Complaint: ELEVATED BS Time Seen by MD: 09:38 Primary Medical Doctor: abbie Mode of Arrival: Ambulatory HPI 54-year-old female presents to the ED with a complaint of hyperglycemia over the last 3-4 days. States she has a an insulin pump but she ran out of the Humulin since Monday. She adds that she has been using Lantus instead of Humulin which is why she states her glucose has not been well managed Since then ,she has developed body pain ,general malaise ,nausea, vomiting .according to EMS her blood sugar read high indicating over 600. Save Zofran in route. sHe is also reporting chest pain that radiates to the left shoulder. Day of Onset: Dec 22, 2024 Medication Reconciliation Allergies: Coded Allergies: Oxycodone Terephthalate (Verified Allergy, Intermediate, 10/07/16) oxycodone HCl (Verified Allergy, Intermediate, 10/07/16) Scheduled Ibuprofen (Ibuprofen), 1 TAB PO Q8H Insulin Lispro* (Humalog*), 0 SQ SLIDING SCALE, (Reported) Lidocaine/Menthol (Lidocaine-Menthol 4%-1% Patch), 1 PATCH TOP DAILY Omeprazole (Omeprazole), 20 PO DAILY, (Reported) Past Medical History Past Medical History: High Cholesterol, Hypertension, Diabetes, Chronic Back Pain, Anxiety Past Surgical History: cholecystectomy, hysterectomy, tubal ligation Alcohol Use: None Drug Use: none Lives with: S/O Lives In: Home Occupation: employed Review of Systems All Other Systems at this time: Reviewed and Negative ROS As stated above in the HPI, otherwise all systems are reviewed and negative. Physical Exam Vital Signs: Temperature: 97.8, Source: Temporal, Heart Rate: 101, Respiratory Rate: 24, BP: 118/55, Pulse Oximetry: 100, Weight: 84.090 Oxygen Flow Rate: 0 Physical Exam General: Alert, mild distress HEENT: PERRL, EOMI, no injection, moist mucous membranes. Respiratory: Lungs clear, no respiratory distress. No Kussmaul breathing Chest: No accessory muscle use. Cardiovascular: Regular rate and rhythm, no murmurs. Gastrointestinal: Soft, nontender, nondistended. Bowels sounds present. Neurologic: Oriented x4. Psychiatric: Normal mood and affect. Skin: Normal color, warm and dry. No edema, no ecchymosis. Progress Results/Orders Results/Orders Orders - MARLON NEGRO MECHANICAL PRESS OPERATOR Urinalysis, Cult If Indicated (12/22/24 09:38) Hcg, Ur Ql (12/22/24 09:38) Accucheck (12/22/24 09:58) Observation Status Start (12/22/24 09:58) Hs Troponin I W Calculations (12/22/24 11:58) Hs Troponin I W Calculations (12/22/24 12:58) Electrocardiogram (12/22/24 ) Stat Ekg (12/22/24 ) Abg (Arterial Blood Gas) (12/22/24 ) Observation Status Start (12/22/24 11:02) Pt Inr (12/22/24 11:05) PTT (12/22/24 11:05) Heparin 25,000 Unit/250ml Bag (Heparin 2 (12/22/24 11:05) Heparin 10,000 Unit/Ml 1ml (Heparin 10,0 (12/22/24 11:05) Cbc/Diff (12/23/24 03:00) Cbc/Diff (12/24/24 03:00) Cbc/Diff (12/25/24 03:00) Cbc/Diff (12/26/24 03:00) Cbc/Diff (12/27/24 03:00) Mixed Venous (12/22/24 ) Insulin Reg/Ns 100units/100ml (Myxredlin (12/22/24 11:41) Completed Orders - MARLON NEGRO MECHANICAL PRESS OPERATOR Cbc/Diff (12/22/24 09:38) BMP (12/22/24 09:38) Lipase (12/22/24 09:38) CMP (12/22/24 09:38) MG (12/22/24 09:58) PHOS (12/22/24 09:58) Hs Troponin I W Calculations (12/22/24 09:58) Nph, Human Insulin Isophane (Humulin N I (12/22/24 10:00) Normal Saline 1000ml (0.9% Sodium Chlori (12/22/24 10:00) Electrocardiogram (12/22/24 ) Insulin Regular, Human (Humulin R 10 Uni (12/22/24 10:20) Insulin Reg/Ns 100units/100ml (Myxredlin (12/22/24 11:05) Morphine 4mg/Ml Inj. (Morphine Inj.) (12/22/24 11:05) Heparin 10,000 Unit/Ml 1ml (Heparin 10,0 (12/22/24 11:40) Heparin 10,000 Unit/Ml 1ml (Heparin 10,0 (12/22/24 11:50) Medications Received in ER Medications (Trade) Dose Ordered Sig/Radha Route PRN Reason Start Time Stop Time Status Last Admin Dose Admin (0.9% sodium chloride (NS) 1000ml IV soln) 2,000 ml ONCE ONCE IVB 12/22/24 10:00 12/22/24 10:01 DC 12/22/24 10:27 2,000 ML Vital Signs 12/22/24 12/22/24 12/22/24 08:53 09:02 09:45 Temp 97.8 Pulse 101 98 Resp 24 18 B/P (MAP) 118/55 119/59 (79) Pulse Ox 100 100 O2 Flow Rate 0 0 Laboratory Tests Test 12/22/24 09:01 12/22/24 10:19 12/22/24 11:10 Glucometer > 600 *H White Blood Count 12.7 H Red Blood Count 3.98 L Hemoglobin 11.8 L Hematocrit 35.4 Mean Corpuscular Volume 89.0 Mean Corpuscular Hemoglobin 29.7 Mean Corpuscular Hemoglobin Concent 30.7 L Red Cell Distribution Width 15.3 H Platelet Count 319 Mean Platelet Volume 10.0 Neutrophils (%) (Auto) 84.0 H Lymphocytes (%) (Auto) 9.9 L Monocytes (%) (Auto) 5.0 Eosinophils (%) (Auto) 0.2 Basophils (%) (Auto) 0.9 Neutrophils # (Auto) 10.7 H Lymphocytes # (Auto) 1.3 Monocytes # (Auto) 0.6 Eosinophils # (Auto) 0.0 Basophils # (Auto) 0.1 CBC Comment Coagulation Comments Sodium Level 118 *L Potassium Level 6.1 *H Chloride Level 80 L Carbon Dioxide Level 7.6 *L Anion Gap 30 H Blood Urea Nitrogen 31 H Creatinine 2.07 H Estimated GFR/1.73 m2 25 BUN/Creatinine Ratio 15.0 Glucose Level 1271 *H Calcium Level 8.8 Phosphorus Level 8.2 H Magnesium Level 2.2 Total Bilirubin 0.6 Aspartate Amino Transf (AST/SGOT) 13 Alanine Aminotransferase (ALT/SGPT) 17 Alkaline Phosphatase 182 H Troponin I High Sensitivity 145 *H Total Protein 7.1 Albumin 3.0 L Globulin 4.1 Albumin/Globulin Ratio 0.7 L Lipase 11 L Chemistry Comments Venous Blood pH 7.056 *L Medical Decision Making Findings 64-year-old female presents in a critical status which includes diagnoses of DKA, hyponatremia, hyperkalemia and an NSTEMI with a positive troponin of 150+ She continues to complain of left-sided chest pain. Have started heparin bolus and drip alone with insulin drip. Received 2 L bolus Concerned this patient's clinical status consulted with Dr. Nicholson the ICU nurses' registry director. Graciously agreed to admit her to the CICU Differential Dx:Considerations: Include: Appendicitis, Bowel obstruction, Cholecysitis, Dehydration, Diabetes, Diabetic coma, DKA, Electrolyte abnormality , Encephalopathy, Gastritis, Hepatitis, Hyperglycemia, Hyperosmolar state, Hypoglycemia, Pancreatitis, Pyelonephritis, UTI, Other Departure Disposition: ADMITTED INPATIENT Impression: Primary Impression: Acute hyperglycemia Additional Impressions: Diabetes mellitus with ketoacidosis DKA (diabetic ketoacidoses) NSTEMI (non-ST elevated myocardial infarction) Diabetes type 1, uncontrolled Hyperkalemia Hyponatremia Referrals: NO PRIMARY CARE PROVIDER (PCP) Critical Care Note Total Time (mins): 60 Critical Care Note The very real possibility of a deterioration of this patient's condition required the highest level of my preparedness for sudden, emergent intervention. I provided critical care services, which included medication orders, frequent reevaluations of the patient's condition and response to treatment, ordering and reviewing test results, and discussing the case with various consultants. Excludes time spent performing separately billable procedures. The critical care time associated with the care of the patient was. Signature Scribe Signature: g Attestation: Scribed for Marlon Negro Debubblizer by Marlon Fulton NP . 12/22/24 10:04 MARLON NEGRO NP Dec 22, 2024 10:05
--- NOTE | 2024-12-22 10:08 | ELECTROCARDIOGRAPH REPORT ---
[facility] Test Date: 2024-12-22 Test Time: 10:06:08 Pat Name: KYMBERLY PARRA Department: [facility]- Patient ID: [facility]-[id number] Room: Gender: F Data Center Operator: : 1970 Requested By: JEREMIAH NEGRO Order Number: [id number] Reading MD: Dr. López Hinojosa Measurements Intervals [place] Rate: 99 P: 62 FL: 210 QRS: 24 QRSD: 100 T: 151 QT: 385 QTc: 495 Interpretive Statements Sinus rhythm Borderline prolonged FL interval Repol abnrm, severe global ischemia (LM/MVD) Electronically Signed On 12-22-2024 11:53:[address] López Hinojosa Please click the below link to view image of tracing.
[2024-12-22] MEDS: normal saline 1000ML IV soln IVB ONE (10:27)
[2024-12-22 10:29] LABS: MEAN PLATELET VOLUME 10.0 FL (7.4-10.4); RED CELL DISTRIBUTION WIDTH 15.3 % (11.5-14.5)
[2024-12-22 10:52] LABS: CREATININE 2.07 MG/DL (0.40-0.90); PHOSPHORUS 8.2 MG/DL (2.3-4.5); eCRCL 28 ML/MIN; eGFR 25 ML/MIN
[2024-12-22] MEDS ORDERED: heparin 10,000 units/1 ML INJ IV ONE ×3 (11:05→11:50)
[2024-12-22] MEDS ORDERED: Insulin Reg/NS 100units/100mL 100 ML IV PRN (11:05)
[2024-12-22] MEDS ORDERED: heparin 25,000 UNIT/250ml bag 250 ML IV PRN (11:05)
[2024-12-22] MEDS ORDERED: heparin 10,000 units/1 ML INJ IV PRN (11:05)
[2024-12-22 11:15] LABS: TOTAL CARBON DIOXIDE 7.6 MMOL/L (24-32)
[2024-12-22] MEDS: insulin regular, human 10 units/0.1 ml syringe SQ ONE (11:54)
[2024-12-22] MEDS ORDERED: magnesium hydroxide 30ml (MOM) UD suspension PO PRN (12:00)
[2024-12-22] MEDS: LidoCAINE 2% Topical Jelly 11mL syringe (UROJET) TOP ONE (12:00)
[2024-12-22] MEDS ORDERED: ondansetron/PF 4mg/2ml inj IV PRN (12:00)
--- NOTE | 2024-12-22 12:03 | HISTORY AND PHYSICAL ---
History of Present Illness End CC ~ Admission Diagnosis:.: DKA History of Present Illness H/O IDDM on Insulin Pump who arrives to ER with uncontrolled BS. Claims she ran out of Insulin for 3-4d Allergies: Coded Allergies: Oxycodone Terephthalate (Verified Allergy, Intermediate, 10/07/16) oxycodone HCl (Verified Allergy, Intermediate, 10/07/16) Home Medications Home Medications Active Ibuprofen 800 Mg Tablet 1 Tab PO Q8H 10 Days Lidocaine-Menthol 4%-1% Patch (Lidocaine/Menthol) 1 Each Adh..patch 1 Patch TOP DAILY 14 Days Reported Omeprazole 20 Mg Capsule.dr 20 PO DAILY Humalog* (Insulin Human Lispro) 100 Units/1 Ml Vial 0 SQ SLIDING SCALE PUMP Past Medical History Past Medical History: High Cholesterol, Hypertension, Diabetes, Chronic Back Pain, Anxiety Past Surgical History Past Surgical History: cholecystectomy, hysterectomy, tubal ligation Past Social History Smoking: Cigarettes Alcohol Use: None Drug Use: None Lives with: S/O Lives In: Home Occupation: employed Advance Care Planning Advanced Care plannin - 30 Minutes Review of Systems All Other Systems at this time: Reviewed and Negative Physical Exam Last Vital Signs recorded: Temperature: 97.8, Source: Temporal, Heart Rate: 98, Respiratory Rate: 18, BP: 119/59, Pulse Oximetry: 100, Weight: 84.090 General Appearance: moderate distress EENT: PERRL/EOMI Neck: full range of motion Respiratory: lungs clear Cardiovascular: normal peripheral pulses, regular rate, rhythm Peripheral Pulses: 1+ carotid (R), 1+ carotid (L), 1+ radial (R), 1+ radial (L), 1+ femoral (R), 1+ femoral (L), 1+ dorsalis pedis (R), 1+ dorsalis pedis (L), 1+ posterior tib (R), 1+ posterior tib (L), 1+ other Gastrointestinal: bowels sounds present Extremities: no edema Neurologic: oriented x4 Results Diagram Lab Result Diagram: 12/22/24 1019 12/22/24 1019 Assessment/Plan 1-Severe DKA -Insulin drip per protocol -NPO -IVF resuscitation -F/U PRAKASH Nicholson CC time 35min KUNAL NICHOLSON MD Dec 22, 2024 12:03
[2024-12-22] MEDS: MESSAGE TO NURSING IV ONE (12:05)
[2024-12-22] MEDS: morphine 4 MG/ML inj SYRINge IV ONE (12:09)
[2024-12-22 12:33] LABS: LEUKOCYTE ESTERASE ,URINE NEGATIVE (Neg); NITRITES, URINE NEGATIVE (Neg); OCCULT BLOOD,URINE TRACE-INTACT (Neg)
[2024-12-22 12:35] LABS: APTT 31 SECONDS (22-32); INR 1.1 INR
[2024-12-22 12:35] LABS: URINE HCG NEGATIVE (NEG)
[2024-12-22 12:38] LABS: UA COLLECTION TYPE CLN CATCH MIDSTREAM
[2024-12-22 12:39] LABS: MUCUS STRANDS FEW /LPF (Neg); SQUAMOUS EPITHELIAL CELL,UR FEW /LPF (FEW)
[2024-12-22] MEDS ORDERED: ALBU17AE26 PO (12:55)
[2024-12-22] MEDS ORDERED: INSU100V11 IV (12:55)
[2024-12-22] MEDS: ringers solution, lacted 1,000 ML IV ONE ×3 (13:04→13:45)
--- NOTE | 2024-12-22 13:30 | PROCEDURE NOTE CC ---
Procedure Note CC Providers to CC ~ Procedure Name: Central Venous Multi-Lumen Catheter Description: Indication: Shock Time-out: Done Consent: Pt Site: R Femoral Vein Anesthesia: Local Technique: Albertinadingjohn Complication: None EBL: 0.5ml Sepsis Screening Reassessment Date: Dec 22, 2024 KUNAL DRAKE MD Dec 22, 2024 13:30
[2024-12-22] MEDS: enoxaparin 40mg/0.4ml syringe SUBCUT SCH (13:47)
[2024-12-22] MEDS ORDERED: potassium Cl 20 mEq SR tablet PO PRN ×2 (13:55)
[2024-12-22] MEDS ORDERED: magnesium sulf-water 4G/100mL 100 ML IV PRN (13:55)
[2024-12-22] MEDS ORDERED: sodium phosphate inj. 30 MMOL in dextrose 5%-water 250 ML IV PRN (13:55)
[2024-12-22 14:08] LABS: CREATININE 2.05 MG/DL (0.40-0.90); PHOSPHORUS 7.5 MG/DL (2.3-4.5); eCRCL 29 ML/MIN; eGFR 25 ML/MIN
[2024-12-22] MEDS: morphine 4 MG/ML inj SYRINge IV PRN (14:40)
[2024-12-22 14:44] LABS: TOTAL CARBON DIOXIDE 7.8 MMOL/L (24-32)
[2024-12-22] MEDS: ringers solution, lacted 1,000 ML IV SCH (14:48)
[2024-12-22] MEDS ORDERED: VALS80TA32 PO (15:00)
[2024-12-22] MEDS ORDERED: ATOR40TA72 PO (15:00)
[2024-12-22 15:33] LABS: URINE AMPHETAMINE SCREEN POSITIVE (Neg); URINE BARBITUATE SCREEN NEGATIVE (Neg); URINE BENZODIAZEPINES SCREEN NEGATIVE (Neg); URINE CANNABINOID SCREEN NEGATIVE (Neg); URINE COCAINE SCREEN NEGATIVE (Neg); URINE METHADONE SCREEN NEGATIVE (Neg); URINE OPIATE SCREEN NEGATIVE (Neg); URINE PHENCYCLIDINE SCREEN NEGATIVE (Neg)
[2024-12-22 18:07] LABS: CREATININE 1.87 MG/DL (0.40-0.90); PHOSPHORUS 3.8 MG/DL (2.3-4.5); TOTAL CARBON DIOXIDE 15.9 MMOL/L (24-32); eCRCL 31 ML/MIN; eGFR 28 ML/MIN
[2024-12-22] MEDS: potassium Cl 40MEQ/270ML bag 270 ML IV PRN (19:55)
[2024-12-22] MEDS: famotidine/PF 10 mg/ml inj IV SCH (19:55)
[2024-12-22] MEDS: Insulin Reg/NS 100units/100mL 100 ML IV PRN (20:40)
[2024-12-22 22:13] LABS: CREATININE 1.64 MG/DL (0.40-0.90); PHOSPHORUS 2.5 MG/DL (2.3-4.5); TOTAL CARBON DIOXIDE 24.1 MMOL/L (24-32); eCRCL 36 ML/MIN; eGFR 32 ML/MIN
[2024-12-22] MEDS: potassium Cl 20mEq/100mL bag 100 ML IV ONE ×2 (22:49→23:52)
[2024-12-23] VITALS (12 sets, daily range): BP systolic 94–137; BP diastolic 41–64; PULSE 79–89; RESP 9–19; O2SAT 93–97
[2024-12-23 01:19] LABS: MEAN PLATELET VOLUME 8.6 FL (7.4-10.4); RED CELL DISTRIBUTION WIDTH 13.8 % (11.5-14.5)
[2024-12-23 01:30] LABS: CREATININE 1.31 MG/DL (0.40-0.90); PHOSPHORUS 2.0 MG/DL (2.3-4.5); TOTAL CARBON DIOXIDE 25.0 MMOL/L (24-32); eCRCL 45 ML/MIN; eGFR 42 ML/MIN
[2024-12-23] MEDS: sodium phosphate inj. 15 MMOL in dextrose 5%-water 250 ML IV PRN (02:14)
[2024-12-23] MEDS ORDERED: potassium Cl 20mEq/100mL bag 100 ML IV ONE (02:40)
[2024-12-23] MEDS: sodium phosphate in D5W IVPB 250 ML IV ONE (02:43)
[2024-12-23] MEDS: potassium Cl 20mEq/100mL bag 100 ML IV SCH (02:58)
[2024-12-23] MEDS ORDERED: Insulin Reg/NS 100units/100mL 100 ML IV PRN (04:00)
[2024-12-23 05:25] LABS: CREATININE 1.22 MG/DL (0.40-0.90); PHOSPHORUS 3.1 MG/DL (2.3-4.5); TOTAL CARBON DIOXIDE 21.8 MMOL/L (24-32); eCRCL 48 ML/MIN; eGFR 46 ML/MIN
[2024-12-23] MEDS: magnesium sulf-water 2g/50mL 50 ML IV PRN (05:46)
--- NOTE | 2024-12-23 06:22 | PROGRESS NOTE ---
Progress Note Dictate Providers to CC ~ Progress Note: No new acute issues overnight. Off Insulin drip Central Line/PICC still needed: No Antibiotic Ordered?: No Subjective Subjective Comfortable Objective Vitals Vital Signs Date Time Temp Pulse Resp B/P (MAP) Pulse Ox O2 Delivery O2 Flow Rate FiO2 12/23/24 05:57 97.7 83 14 117/46 (69) 96 Room Air 12/22/24 09:45 0 Lab Results: 12/23/24 0105 12/23/24 0500 Objective Heart: S1-2 reg Lungs: Clear Abdomen: Soft, non-tender, BS (+) Ext: No edema Coagulation Studies Laboratory Tests Test 12/22/24 10:19 Prothrombin Time 10.9 SECONDS (9.0-12.0) INR International Normalized Ratio 1.1 INR Activated Partial Thromboplast Time 31 SECONDS (22-32) Coagulation Comments Problem\Assessment\Plan Additional Plan 1-DKA (resolved) -Start Lantus -Diet -Accucheck /qHS -Supportive LISETH Nicholson Sepsis Screening Reassessment Date: Dec 23, 2024 KUNAL NICHOLSON MD Dec 23, 2024 06:22
[2024-12-23] MEDS: ringers solution, lacted 1,000 ML IV SCH (06:59)
[2024-12-23] MEDS: INSULIN LISPRO 100 UNIT/ML INSULN.PEN MULTI-DOSE SQ SCH ×2 (07:00→13:43)
[2024-12-23] MEDS: insulin glargine (Lantus) pen - multi-dose SQ SCH (08:22)
[2024-12-23 08:46] LABS: CHOL/HDL RATIO 2.2 (0.00-4.99); LDL CHOLESTEROL 41 MG/DL (50-100)
[2024-12-23] MEDS ORDERED: bisacodyl 10mg suppository rectal RC PRN (09:35)
--- NOTE | 2024-12-23 17:47 | DISCHARGE SUMMARY-Residence ---
Discharge Summary Providers to CC Resident Creating Document: NEEL CEVALLOS CC: KUNAL DRAKE MD ~ Discharge Summary Admission Diagnosis: DKA Hospital Course DATE OF ADMISSION: 12/22/2024 DATE OF DISCHARGE: 12/23/2024 Discharge Diagnosis\Comment: DKA Uncontrolled type 1 diabetes Hyperlipidemia Hypertension Operations\Procedures: None Consultants: None Complications: None Condition on DC: Stable Discharge Summary: Hospital course (PATIENT LEFT AGAINST MEDICAL ADVICE): Patient is a 54-year-old female with history of type 1 diabetes, hypertension, and hyperlipidemia who was admitted earlier today with diabetes ketoacidosis. Patient was admitted to the ICU and was started on DKA protocol which includes heparin drip and aggressive IV hydration. Patient improved rapidly, with resolution of DKA and improvement of electrolytes. Plan was to transfer patient to the floors and continue care by hospitalist team as patient needs better management of her blood sugars. However, patient decided to leave against medical advice today. Patient was explained the risks of leaving the hospital which includes worsening of her condition and . *Problems/Diagnosis: (1) History of diabetes mellitus Status: Acute (2) DKA (diabetic ketoacidoses) Status: Acute Total Time Spent on D/C: > 30 Minutes Date of Service: Dec 23, 2024 Billing Provider: KUNAL DRAKE MD, LEONARDO LUIS Dec 23, 2024 17:46
[2024-12-23] MEDS ORDERED: docusate sod 100mg capsule PO SCH (20:00)
[2024-12-24] MEDS ORDERED: magnesium hydroxide 30ml (MOM) UD suspension PO SCH (08:00)
== END 2024-12-23 16:15 | disposition left against medical advice (07) | DRG 420 ==
LOC: ER 08:53 → ED HOLD 11:59 → EDBEDREQ 12:07 → CICU 2S 12:46
PROVIDERS: ADMIT Internal Medicine Critical Care Medicine; ATTEND Internal Medicine Critical Care Medicine
PROC: 06HY33Z Insertion of Infusion Device into Lower Vein, Percutaneous Approach (ICD-10-PCS; principal; 2024-12-22)
DX: E10.10 Type 1 diabetes mellitus with ketoacidosis without coma (principal); I21.4 Non-ST elevation (NSTEMI) myocardial infarction; F17.210 Nicotine dependence, cigarettes, uncomplicated; F41.9 Anxiety disorder, unspecified; I10 Essential (primary) hypertension; Z91.148 Patient's other noncompliance with medication regimen for other reason; Z53.21 Procedure and treatment not carried out due to patient leaving prior to being seen by health care provider; E87.5 Hyperkalemia; E87.1 Hypo-osmolality and hyponatremia; E78.00 Pure hypercholesterolemia, unspecified; Z90.710 Acquired absence of both cervix and uterus; Z79.4 Long term (current) use of insulin
CPT/HCPCS: 36415; 80048; 80053; 80061; 80305; 81001; 81025; 82800; 82948; 83036; 83690; 83735; 83930; 84100; 84443; 84484; 85025; 85610; 85730; 87081; 93005; 96360; 99291; A4314; A6258; A6449; C1758; G0378; J1650; J1815; J2270; J3480; J3490; J7030; J7040; J7060; J7120